=== PATIENT | female | born 1985 | race Two or more races ===

== ENCOUNTER 2020-08-28 12:20 | Emergency (ER) | payer MEDICAID, OTHER ==
[2020-08-28 14:35] VITALS: BP 111/69
== END 2020-08-28 14:36 | disposition home or self-care (01) ==
LOC: ER 12:20
DX: S70.01XA Contusion of right hip, initial encounter (principal); S40.011A Contusion of right shoulder, initial encounter; O26.891 Other specified pregnancy related conditions, first trimester; Z90.49 Acquired absence of other specified parts of digestive tract; Z3A.11 11 weeks gestation of pregnancy; W11.XXXA Fall on and from ladder, initial encounter; Y93.89 Activity, other specified; Y92.89 Other specified places as the place of occurrence of the external cause; Y99.8 Other external cause status
CPT/HCPCS: 76801

== ENCOUNTER 2020-12-27 14:45 | Observation (INO) | payer MEDICAID ==
[2020-12-27] MEDS ORDERED: PREN-96 PO (15:33)
== END 2020-12-27 15:58 | disposition home or self-care (01) ==
LOC: LDRP 14:45
PROVIDERS: ADMIT Obstetrics & Gynecology; ATTEND Obstetrics & Gynecology
DX: O26.893 Other specified pregnancy related conditions, third trimester (principal); K62.5 Hemorrhage of anus and rectum; K64.9 Unspecified hemorrhoids; Z3A.29 29 weeks gestation of pregnancy
CPT/HCPCS: 59025; 81002; 94760; G0378; G0379

== ENCOUNTER 2021-01-13 10:20 | Observation (INO) | payer MEDICAID ==
[~2021-01-13] VITALS: Ht 162.6 cm; Wt 104.8 kg
[~2021-01-13 10:20] MED LIST: PREN-96 PO
[2021-01-13] MEDS ORDERED: BETAMETHASONE ACET (30mg/5ml) 5ml Vial 6mg/ml IM ONE (11:15)
[2021-01-13] MEDS: TERBUTALINE SULFATE 1 MG/ML 1ML VIAL SC SCH ×3 (11:26→12:22)
[2021-01-13] MEDS ORDERED: NIF10C PO (12:12)
[2021-01-13] MEDS ORDERED: NIFEdipine 10 MG CAP PO ONE (12:30)
[2021-01-13] MEDS ORDERED: LACTATED RINGER'S 1,000 ML IV ONE (13:40)
== END 2021-01-13 15:07 | disposition home or self-care (01) ==
LOC: LDRP 10:20
PROVIDERS: ADMIT Obstetrics & Gynecology; ATTEND Obstetrics & Gynecology
DX: O60.03 Preterm labor without delivery, third trimester (principal); O62.9 Abnormality of forces of labor, unspecified; Z98.891 History of uterine scar from previous surgery; O26.873 Cervical shortening, third trimester; Z3A.32 32 weeks gestation of pregnancy
CPT/HCPCS: 59025; 81002; 96360; 96361; 96372; G0378; G0379; J0702; J3105

== ENCOUNTER 2021-01-14 07:59 | Observation (INO) | payer MEDICAID ==
[~2021-01-14 07:59] MED LIST changes: +NIF10C PO
[2021-01-14] MEDS ORDERED: BETAMETHASONE ACET (30mg/5ml) 5ml Vial 6mg/ml IM ONE (11:45)
== END 2021-01-14 13:04 | disposition home or self-care (01) ==
LOC: LDRP 11:37
PROVIDERS: ADMIT Obstetrics & Gynecology; ATTEND Obstetrics & Gynecology
DX: O60.03 Preterm labor without delivery, third trimester (principal); Z3A.32 32 weeks gestation of pregnancy; Z98.891 History of uterine scar from previous surgery
CPT/HCPCS: 59025; 81002; 94760; 96372; G0378; G0379

== ENCOUNTER 2021-01-20 14:48 | Observation (INO) | payer MEDICAID | END 2021-01-20 20:11 | disposition home or self-care (01) | LOC: LDRP 18:55 | PROVIDERS: ADMIT Obstetrics & Gynecology; ATTEND Obstetrics & Gynecology | DX: O60.03 Preterm labor without delivery, third trimester (principal); O26.873 Cervical shortening, third trimester; Z3A.33 33 weeks gestation of pregnancy | CPT/HCPCS: 59025; 81002; G0378 ==

== ENCOUNTER 2021-01-27 09:55 | Observation (INO) | payer MEDICAID ==
[~2021-01-27] VITALS: Ht 162.6 cm; Wt 106.6 kg
[2021-01-27] MEDS ORDERED: TERBUTALINE SULFATE 1 MG/ML 1ML VIAL SC SCH (10:15)
== END 2021-01-27 11:20 | disposition home or self-care (01) ==
LOC: LDRP 09:55
PROVIDERS: ADMIT Obstetrics & Gynecology; ATTEND Obstetrics & Gynecology
DX: O60.03 Preterm labor without delivery, third trimester (principal); O62.9 Abnormality of forces of labor, unspecified; Z3A.34 34 weeks gestation of pregnancy; Z98.891 History of uterine scar from previous surgery
CPT/HCPCS: 59025; 81002; 94760; 96372; G0378; G0379; J3105

== ENCOUNTER 2021-02-03 18:58 | Observation (INO) | payer MEDICAID | END 2021-02-03 21:57 | disposition home or self-care (01) | LOC: LDRP 18:58 | PROVIDERS: ADMIT Obstetrics & Gynecology; ATTEND Obstetrics & Gynecology | DX: O60.03 Preterm labor without delivery, third trimester (principal); Z3A.35 35 weeks gestation of pregnancy | CPT/HCPCS: 59025; 81002; G0378; G0379 ==

== ENCOUNTER 2021-02-10 18:59 | Observation (INO) | payer MEDICAID ==
[2021-02-10] MEDS ORDERED: TERBUTALINE SULFATE 1 MG/ML 1ML VIAL SC PRN (19:45)
== END 2021-02-10 20:56 | disposition home or self-care (01) ==
LOC: LDRP 18:59
PROVIDERS: ADMIT Obstetrics & Gynecology; ATTEND Obstetrics & Gynecology
DX: O60.03 Preterm labor without delivery, third trimester (principal); O62.9 Abnormality of forces of labor, unspecified; Z3A.36 36 weeks gestation of pregnancy
CPT/HCPCS: 59025; 81002; 94760; 96372; G0378; J3105

== ENCOUNTER 2021-02-17 19:23 | Observation (INO) | payer MEDICAID | END 2021-02-17 21:17 | disposition home or self-care (01) | LOC: LDRP 19:23 | PROVIDERS: ADMIT Obstetrics & Gynecology; ATTEND Obstetrics & Gynecology | DX: O26.873 Cervical shortening, third trimester (principal); O60.03 Preterm labor without delivery, third trimester; Z3A.37 37 weeks gestation of pregnancy | CPT/HCPCS: 59025; 81002; G0378 ==

== ENCOUNTER 2021-02-24 18:58 | Observation (INO) | payer MEDICAID | END 2021-02-24 20:17 | disposition home or self-care (01) | LOC: LDRP 18:58 | PROVIDERS: ADMIT Obstetrics & Gynecology; ATTEND Obstetrics & Gynecology | DX: O60.03 Preterm labor without delivery, third trimester (principal); Z3A.38 38 weeks gestation of pregnancy | CPT/HCPCS: 59025; 81002; 94760; G0378; G0379 ==

== ENCOUNTER 2021-02-28 05:06 | Inpatient (IN) | payer MEDICAID ==
[~2021-02-28] VITALS: Ht 162.6 cm; Wt 107.5 kg
[2021-02-28] VITALS (21 sets, daily range): BP systolic 90–109; BP diastolic 40–75
[2021-02-28] MEDS: LACTATED RINGER'S 1,000 ML IV SCH ×3 (00:06→16:11)
[2021-02-28 05:58] LABS: Alcohol, Urine < 3.0 mg/dL (0-10); Amphetamine Screen, Urine NEGATIVE (NEGATIVE); Barbiturate Scree,Urine NEGATIVE (NEGATIVE); Benzodiazephine Screen, Urine NEGATIVE (NEGATIVE); Cannabinoid Screen, Urine NEGATIVE (NEGATIVE); Cocaine Screen, Urine NEGATIVE (NEGATIVE); Opiate Scree,Urine NEGATIVE (NEGATIVE); Phencyclidine Screen, Urine NEGATIVE (NEGATIVE)
[2021-02-28 06:06] LABS: Urine Bacteria FEW /hpf (None Seen); Urine Blood Negative /uL (Negative); Urine Specific Gravity 1.014 (1.001-1.035); Urine WBC 2 /hpf (0 - 5)
[2021-02-28] MEDS ORDERED: SODIUM CITR/CITRIC ACID ORAL SOLN 30 ML PO ONE (06:15)
[2021-02-28] MEDS ORDERED: ceFAZolin 1GM/50ML 50 ML IV ONE (06:15)
[2021-02-28] MEDS ORDERED: LACTATED RINGER'S 1,000 ML IV ONE (06:15)
[2021-02-28] MEDS ORDERED: METOCLOPRAMIDE HCL 5MG/ml INJ 2ml VIAL IV ONE (06:15)
[2021-02-28 06:35] LABS: Basophils # (auto) 0.1 10 ^3/uL (0-0.2); Basophils % (auto) 0.7 % (0.0-2.0); Eosinophils # (auto) 0.2 10 ^3/uL (0-0.8); Eosinophils % (auto) 1.4 % (0.0-7.0); Hematocrit 36.8 % (36.0-46.0); Hemoglobin 12.5 g/dL (12.2-16.2); Lymphocytes # (auto) 1.9 10 ^3/uL (0.4-5.4); Lymphocytes % (auto) 18.1 % (10.0-50.0); Mean Corpuscular Hemoglobin 29.7 pg (28.0-32.0); Mean Corpuscular Hgb Conc. 34.1 g/dL (32.0-36.0); Mean Corpuscular Volume 87.2 fL (80.0-100.0); Monocytes # (auto) 0.5 10 ^3/uL (0-1.3); Monocytes % (auto) 4.6 % (0.0-12.0); Neutrophils # (auto) 8.1 10 ^3/uL (1.6-8.6); Neutrophils % (auto) 75.2 % (37.0-80.0); Nucleated Red Blood Cells % 0.1 %; Red Blood Cells 4.22 10^6/uL (4.0-5.20); Red Cell Distribution Width 13.7 % (11.8-14.3); White Blood Cell 10.8 10^3/uL (4.4-10.8)
[2021-02-28 06:51] LABS: INR 0.94 (0.9-1.15); Partial Thromboplastin Time 27.1 sec (23.6-33.0)
[2021-02-28 06:53] LABS: Albumin 2.5 g/dL (3.4-5.0); Calcium 8.8 mg/dL (8.5-10.1)
[2021-02-28 06:56] LABS: BUN/Creatinine Ratio 13.2
[2021-02-28 06:59] LABS: Bilirubin, Total 0.3 mg/dL (0.2-1.0); Total Protein 5.9 g/dL (6.4-8.2)
[2021-02-28] MEDS ORDERED: MORPHINE SULF PF 2 MG/2 ML SYRG ONE (07:30)
[2021-02-28] MEDS ORDERED: fentaNYL CITRATE 100 MCG/2 ML VL ONE (07:31)
[2021-02-28] MEDS ORDERED: oxyTOCIN 10 UNIT/ML 10ML VIAL ONE (08:30)
[2021-02-28] MEDS ORDERED: ONDANSETRON HCL 4 MG/2 ML VIAL ONE (08:42)
[2021-02-28] MEDS ORDERED: CARBOPROST TROMETHAMINE 250 MCG/1ML VIAL IM ONE (08:42)
[2021-02-28] MEDS ORDERED: ONDANSETRON HCL 4 MG/2 ML VIAL IV PRN (09:15)
[2021-02-28] MEDS ORDERED: LACT. RINGERS/OXYTOCIN 20UNITS 1,000 ML IV ONE (09:15)
[2021-02-28] MEDS ORDERED: NALOXONE HCL 0.4 MG/ML VIAL IV PRN (09:30)
[2021-02-28] MEDS ORDERED: NALBUPHINE HCL 10 MG/1ml INJECTION SUBCUT ONE (09:30)
[2021-02-28] MEDS ORDERED: ceFAZolin 1GM/50ML 50 ML IV SCH (13:00)
[2021-02-28] MEDS: ceFAZolin 1GM/50ML 50 ML IV SCH ×2 (15:06→23:11)
[2021-02-28] MEDS: ACETAMINOPHEN IV 1000 MG/100ML (10MG/ML) IV SCH (17:34)
[2021-02-28] MEDS ORDERED: GUM (CHEWING) 1 GUM CHEW CHEW ONE (19:15)
[2021-02-28 22:28] LABS: Basophils # (auto) 0 10 ^3/uL (0-0.2); Basophils % (auto) 0.5 % (0.0-2.0); Eosinophils # (auto) 0.1 10 ^3/uL (0-0.8); Eosinophils % (auto) 0.9 % (0.0-7.0); Hematocrit 36.5 % (36.0-46.0); Hemoglobin 12.3 g/dL (12.2-16.2); Lymphocytes # (auto) 1.7 10 ^3/uL (0.4-5.4); Lymphocytes % (auto) 17.2 % (10.0-50.0); Mean Corpuscular Hemoglobin 30.2 pg (28.0-32.0); Mean Corpuscular Hgb Conc. 33.6 g/dL (32.0-36.0); Mean Corpuscular Volume 89.9 fL (80.0-100.0); Monocytes # (auto) 0.5 10 ^3/uL (0-1.3); Monocytes % (auto) 5.3 % (0.0-12.0); Neutrophils # (auto) 7.6 10 ^3/uL (1.6-8.6); Neutrophils % (auto) 76.1 % (37.0-80.0); Red Blood Cells 4.06 10^6/uL (4.0-5.20); Red Cell Distribution Width 13.7 % (11.8-14.3); White Blood Cell 9.9 10^3/uL (4.4-10.8)
[2021-03-01] VITALS (11 sets, daily range): BP systolic 93–116; BP diastolic 50–68
[2021-03-01] MEDS: ACETAMINOPHEN IV 1000 MG/100ML (10MG/ML) IV SCH ×2 (00:16→05:53)
[2021-03-01] MEDS: LACTATED RINGER'S 1,000 ML IV SCH ×3 (06:15→22:15)
[2021-03-01] MEDS: ceFAZolin 1GM/50ML 50 ML IV SCH (06:43)
[2021-03-01 07:09] LABS: Basophils # (auto) 0 10 ^3/uL (0-0.2); Basophils % (auto) 0.4 % (0.0-2.0); Eosinophils # (auto) 0.1 10 ^3/uL (0-0.8); Eosinophils % (auto) 1.1 % (0.0-7.0); Hematocrit 33.2 % (36.0-46.0); Hemoglobin 11.3 g/dL (12.2-16.2); Lymphocytes # (auto) 1.5 10 ^3/uL (0.4-5.4); Lymphocytes % (auto) 14.8 % (10.0-50.0); Mean Corpuscular Hemoglobin 29.9 pg (28.0-32.0); Mean Corpuscular Hgb Conc. 34.1 g/dL (32.0-36.0); Mean Corpuscular Volume 87.5 fL (80.0-100.0); Monocytes # (auto) 0.6 10 ^3/uL (0-1.3); Monocytes % (auto) 6.2 % (0.0-12.0); Neutrophils # (auto) 7.7 10 ^3/uL (1.6-8.6); Neutrophils % (auto) 77.5 % (37.0-80.0); Red Blood Cells 3.79 10^6/uL (4.0-5.20); Red Cell Distribution Width 13.7 % (11.8-14.3)
[2021-03-01] MEDS ORDERED: WITCH HAZEL-GLYCERIN PAD TOP PRN (08:30)
[2021-03-01] MEDS ORDERED: HYDROcodone-ACET 5/325MG TAB PO PRN (08:30)
[2021-03-01] MEDS ORDERED: BISACODYL 10 MG RECT SUPP PR PRN (08:30)
[2021-03-01] MEDS: IBUPROFEN 800 MG TAB PO PRN ×2 (09:05→17:36)
[2021-03-01] MEDS: DOCUSATE SOD 100 MG CAP PO SCH ×2 (09:37→22:14)
[2021-03-01] MEDS: DOCUSATE CALCIUM 240 MG CAP PO SCH (09:37)
[2021-03-01] MEDS: SIMETHICONE 80 MG CHEWABLE TABLET PO SCH ×3 (11:41→22:15)
[2021-03-01] MEDS: HYDROcodone-ACET 5/325MG TAB PO PRN ×2 (14:06→22:15)
[2021-03-02] MEDS: IBUPROFEN 800 MG TAB PO PRN ×3 (02:16→22:08)
[2021-03-02 02:49] VITALS: BP 116/58
[2021-03-02 05:06] LABS: RPR Non Reactive (Non Reactive)
[2021-03-02] MEDS: SIMETHICONE 80 MG CHEWABLE TABLET PO SCH ×4 (05:54→22:07)
[2021-03-02] MEDS: HYDROcodone-ACET 5/325MG TAB PO PRN ×2 (05:54→15:46)
[2021-03-02] MEDS: LACTATED RINGER'S 1,000 ML IV SCH ×3 (06:15→21:50)
[2021-03-02 06:30] VITALS: BP 109/68
[2021-03-02] MEDS ORDERED: IBUP800T27 PO (07:19)
[2021-03-02] MEDS ORDERED: DOCU-94 PO (07:19)
[2021-03-02] MEDS ORDERED: HYDR-4902 PO (07:19)
[2021-03-02 10:35] VITALS: BP 102/70
[2021-03-02] MEDS: DOCUSATE CALCIUM 240 MG CAP PO SCH (10:59)
[2021-03-02] MEDS: DOCUSATE SOD 100 MG CAP PO SCH ×2 (10:59→22:07)
[2021-03-02 15:40] VITALS: BP 108/65
[2021-03-02 19:00] VITALS: BP 113/67
[2021-03-02 23:00] VITALS: BP 120/71
[2021-03-03] MEDS: HYDROcodone-ACET 5/325MG TAB PO PRN (02:23)
[2021-03-03 03:00] VITALS: BP 112/67
[2021-03-03] MEDS: SIMETHICONE 80 MG CHEWABLE TABLET PO SCH (05:50)
[2021-03-03] MEDS: IBUPROFEN 800 MG TAB PO PRN (05:53)
[2021-03-03 06:30] VITALS: BP 94/62
[2021-03-03] MEDS ORDERED: BISACODYL 10 MG RECT SUPP PR ONE (07:15)
[2021-03-03 10:13] VITALS: BP 102/62
== END 2021-03-03 10:13 | disposition home or self-care (01) | DRG 540 ==
LOC: LDRP 05:06 → OBSVTOIN 05:06 → LDRP 08:35
PROVIDERS: ADMIT Obstetrics & Gynecology; ATTEND Obstetrics & Gynecology
PROC: 10D00Z1 Extraction of Products of Conception, Low, Open Approach (ICD-10-PCS; principal; 2021-02-28 07:55)
DX: O99.892 Other specified diseases and conditions complicating childbirth (principal); N73.6 Female pelvic peritoneal adhesions (postinfective); O34.211 Maternal care for low transverse scar from previous cesarean delivery; Z20.822 Contact with and (suspected) exposure to COVID-19; Z37.0 Single live birth; Z3A.38 38 weeks gestation of pregnancy
CPT/HCPCS: 36415; 59025; 80053; 80307; 81001; 81002; 85025; 85610; 85730; 86592; 86850; 86900; 86901; 87426; 94760; 94762; 96360; 96361; G0378; J0131; J0690; J2405; J2590